=== PATIENT | male | born 1965 | race Caucasian/White ===

== ENCOUNTER 2017-01-30 14:28 | Emergency (ER) | payer OTHER ==
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
[2017-01-30 14:58] VITALS: BP 147/73; PULSE 118; TEMP 100.1; BMI 29.2
== END 2017-01-30 16:29 | disposition home or self-care (01) ==
LOC: FER 14:28
DX: H16.9 Unspecified keratitis (principal); G62.9 Polyneuropathy, unspecified; N30.10 Interstitial cystitis (chronic) without hematuria
CPT/HCPCS: 70450-TC; 99281-25

== ENCOUNTER 2017-03-13 16:10 | Emergency (ER) | payer OTHER ==
[2017-03-13 16:28] VITALS: BP 155/85; PULSE 96; TEMP 97.9; BMI 30.5
[2017-03-13] MEDS ORDERED: TETRACAINE 0.5% OPHTH SOLN 2 ML BOTTLE ONE (16:43)
[2017-03-13] MEDS ORDERED: FLUORESCEIN NA 1 EA STRIP ONE (16:43)
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
[2017-03-13] MEDS ORDERED: CIPROFLOXACIN HCL 0.3% OPHTH 2.5ML BOTTLE ONE (17:24)
[2017-03-14] MEDS ORDERED: CIPROFLOXACIN 0.3% EYE DROPS 5 ML BOTTLE OS ONE (17:19)
== END 2017-03-13 17:30 | disposition home or self-care (01) ==
LOC: FER 16:10
DX: H57.12 Ocular pain, left eye (principal); E11.9 Type 2 diabetes mellitus without complications
CPT/HCPCS: 99281-25

== ENCOUNTER 2017-07-25 13:40 | Emergency (ER) | payer OTHER ==
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
[2017-07-25 14:02] VITALS: BP 119/91; PULSE 100; TEMP 98.7; BMI 31.1
== END 2017-07-25 15:30 | disposition home or self-care (01) ==
LOC: FER 13:40 → SUPCPDRO 13:40 → FER 15:30
DX: M19.011 Primary osteoarthritis, right shoulder (principal); M54.12 Radiculopathy, cervical region; E11.9 Type 2 diabetes mellitus without complications
CPT/HCPCS: 72125-TC; 73030-TC-RT; 99283-25

== ENCOUNTER 2018-03-02 07:35 | Day surgery (SDC) | payer OTHER ==
[2018-03-01 15:35] VITALS: BMI 27.8
[~2018-03-02 07:35] MED LIST: HEPARIN NA (PORCINE) 5,000 UNITS/ML 1ML VIAL SQ ONE; LIDOCAINE HCL 1%, 10 MG/ML (20ML VIAL) INF ONE
[2018-03-02] MEDS ORDERED: PROPOFOL 20 ML ONE (09:08)
[2018-03-02] MEDS ORDERED: MIDAZOLAM HCL 2 MG/2 ML SINGLE DOSE VIAL ONE (09:08)
[2018-03-02] MEDS ORDERED: LIDOCAINE HCL 1%, 10 MG/ML (20ML VIAL) ONE (09:17)
[2018-03-02] MEDS ORDERED: HEPARIN NA (PORCINE) 5,000 UNITS/ML 1ML VIAL ONE (09:17)
[2018-03-02] MEDS ORDERED: PROMETHAZINE HCL 25 MG/1 ML VIAL IVPUSH PRN (09:19)
[2018-03-02] MEDS ORDERED: ONDANSETRON 4 MG/2 ML VIAL IVPUSH PRN (09:19)
[2018-03-02] MEDS ORDERED: LACTATED RINGERS SOLUTION 1,000 ML IV SCH (09:30)
[2018-03-02] MEDS ORDERED: ceFAZolin SODIUM 1 GM VIAL ONE (09:31)
[2018-03-02] MEDS ORDERED: SODIUM CHLORIDE 0.9% P/F 10 ML VIAL IJ ONE (09:31)
[2018-03-02] MEDS ORDERED: ceFAZolin SODIUM 1 GM VIAL IVPB ONE (09:33)
[2018-03-02] MEDS ORDERED: LIDOCAINE HCL/PF 2% SDV 5ML VIAL ONE (09:34)
[2018-03-02] MEDS ORDERED: LIDOCAINE HCL 1%, 10 MG/ML (20ML VIAL) INF ONE ×2 (09:50)
[2018-03-02] MEDS ORDERED: HEPARIN NA (PORCINE) 5,000 UNITS/ML 1ML VIAL SQ ONE (09:51)
--- NOTE | 2018-03-02 10:39 | HP ---
Admitting History and Physical - Admission Chief Complaint: Pt with IVC filter placed at [facility]. Recently found to have lupus and is hypercoaguble. Needs to have filter removed. Limitations to Obtaining History: No Limitations - Smoking History Smoking history: Never smoked Have you smoked in the past 12 months: No Aproximately how many cigarettes per day: 0 - Alcohol/Substance Use Hx Alcohol Use: No Home Medications - Allergies Allergies/Adverse Reactions: Allergies Allergy/AdvReac Type Severity Reaction Status Date / Time atorvastatin calcium Allergy Intermediate Hives Verified 03/02/18 08:17 [From Lipitor] - Home Medications Home Medications: Ambulatory Orders Gabapentin 800 mg PO QID 03/17/14 Sitagliptin Phosphate [Januvia] 100 mg PO DAILY 01/30/17 LORazepam [Ativan] 2 mg PO BID 02/13/18 Methadone [Dolophine -] 80 mg PO DAILY 02/13/18 Rivaroxaban [Xarelto -] 1 tab PO DAILY 02/13/18 Linaclotide [Linzess] 145 mcg PO DAILY 03/01/18 Mirabegron [Myrbetriq] 50 mg PO DAILY 03/01/18 Quetiapine Fumarate [Seroquel] 100 mg PO DAILY 03/01/18 Review of Systems - Review of Systems Constitutional: reports: No Symptoms Eyes: reports: No Symptoms HENT: reports: No Symptoms Neck: reports: No Symptoms Cardiovascular: reports: No Symptoms Respiratory: reports: No Symptoms Gastrointestinal: reports: No Symptoms Genitourinary: reports: No Symptoms Musculoskeletal: reports: No Symptoms Integumentary: reports: No Symptoms Neurological: reports: No Symptoms Endocrine: reports: No Symptoms Hematology/Lymphatic: reports: No Symptoms Psychiatric: reports: No Symptoms Physical Examination Vital Signs: Vital Signs Temperature 98.4 F 03/02/18 08:14 Pulse Rate 81 03/02/18 08:14 Respiratory Rate 16 03/02/18 08:14 Blood Pressure 119/61 03/02/18 08:14 O2 Sat by Pulse Oximetry (%) 100 03/02/18 08:14 Constitutional: Yes: Well Nourished, No Distress, Calm Eyes: Yes: WNL, Conjunctiva Clear, EOM Intact HENT: Yes: WNL, Atraumatic, Normocephalic Neck: Yes: WNL, Supple, Trachea Midline Cardiovascular: Yes: WNL, Regular Rate and Rhythm Respiratory: Yes: WNL, Regular, CTA Bilaterally Gastrointestinal: Yes: WNL, Normal Bowel Sounds Musculoskeletal: Yes: WNL Extremities: Yes: WNL Edema: No Integumentary: Yes: WNL Neurological: Yes: WNL, Alert, Oriented ...Motor Strength: WNL Psychiatric: Yes: WNL Problem List - Problems (1) DVT (deep venous thrombosis) Code(s): I82.409 - ACUTE EMBOLISM AND THOMBOS UNSP DEEP VN UNSP LOWER EXTREMITY Assessment/Plan DVT/PE with filter. 1. Here for filter removal today.
--- NOTE | 2018-03-02 10:41 | OP ---
Operative Note - Note: Operative Date: 03/02/18 Pre-Operative Diagnosis: DVT/PE, hypercoaguble syndrome Operation: retrieval of IVC filter, with venogram Findings: NO clot found in IVC Post-Operative Diagnosis: Same as Pre-op Surgeon: Michael Hurtado Anesthesia: Fractional Estimated Blood Loss (mls): 50 Operative Report Dictated: Yes
--- NOTE | 2018-03-02 11:45 | OP ---
DATE OF OPERATION: 03/02/2018 PREOPERATIVE DIAGNOSIS: Deep vein thrombosis, pulmonary embolism with hypercoagulable syndrome. POSTOPERATIVE DIAGNOSIS: Deep vein thrombosis, pulmonary embolism with hypercoagulable syndrome. PROCEDURE: Retrieval of inferior vena cava filter with venogram. SURGEON: Michael Loredo DO ANESTHESIA: Fractional. BLOOD LOSS: 50 mL The patient is a 52-year-old male that had an IVC filter with suction thrombectomy performed at [facility] about 1 month ago. At that time, they placed a filter and the patient IVC thrombosis. He recently went to a district resource officer and they found that he has possible antiphospholipid syndrome and lupus anticoagulant and due to that hypercoagulable syndrome, he needs to have his filter removed because that could be a nidus for further thrombosis. Patient came into Ambulatory Surgery. Patient stopped his Xarelto 2 days prior. Patient was consented for the procedure understanding all risks, benefits and alternatives and was taken to the operating room. Once in the operating room, he was laid on operating table in supine manner and the area of the right neck and chest prepped and draped in sterile surgical manner. Under ultrasound guidance, we visualized the right internal jugular vein and 10 mL lidocaine 1% was injected there. We then took the micropuncture needle and punctured the right internal jugular vein. Micropuncture wire was inserted. Micropuncture sheath was inserted. We then placed a J-wire and exchanged that for a 7-Tongan sheath. We then placed under fluoroscopy down to the IVC filter. We then went ahead and placed our Merit Snare Sheath down to the filter. We then placed our snare inside the sheath and then brought our snare out of the sheath near the filter. The snare was then used. Using the snare, we were able to grasp the filter and we were then able to place our sheath over the filter and the filter collapsed into the sheath. The sheath was then entirely removed through the neck and the filter was removed. The filter was then removed from the sheath and sent to Pathology. We then went ahead and placed our Merit Sheath back in and shot a vena cavogram of the area and there was no IVC clot and there was good flow in the inferior vena cava. We then went ahead and removed our 7-Tongan sheath from the right IJ. Pressure was held for 5 minutes. After there was no bleeding, the area was wet and dry and Dermabond was placed. Patient tolerated the procedure with no complications. Patient transferred to PACU in stable condition. MICHAEL LOREDO DO [id number]
[2018-03-02 11:46] VITALS: TEMP 97.8
[2018-03-02 12:04] VITALS: PULSE 72
[2018-03-02 12:40] VITALS: BP 128/78
--- NOTE | 2018-03-03 13:25 | PATH ---
Surgical Pathology Report Patient Name: NUSRAT MOE Med. Rec. #: [id number] /Age/Gender: 1965 (Age: 52) / M Account: [id number] Location: [facility] SURGICAL Taken: 03/02/2018 Received: 03/02/2018 Reported: 03/03/2018 Physicians: Michael Hurtado Specimen(s) Received IVC FILTER Clinical History DVT/PE Final Diagnosis IVC FILTER, REMOVAL: IVC FILTER. MACROSCOPIC DIAGNOSIS. Electronically Signed Sarah Panchal M.D. Gross Description Received fresh labeled "IVC filter," is a 6 cm in greatest dimension [place] metallic foreign body, consistent with an IVC filter. No soft tissue is present. No sections are submitted, gross only. /03/02/201803/02/2018
== END 2018-03-02 12:30 | disposition home or self-care (01) ==
LOC: JASU-SURG 07:35
PROVIDERS: ATTEND Surgery Vascular Surgery
PROC: 05PY3YZ Removal of Other Device from Upper Vein, Percutaneous Approach (ICD-10-PCS; principal; 2018-03-02 09:00)
DX: I82.C21 Chronic embolism and thrombosis of right internal jugular vein (principal); Z86.711 Personal history of pulmonary embolism; Z79.01 Long term (current) use of anticoagulants; D68.69 Other thrombophilia
CPT/HCPCS: 71045-TC-FY; 76000-TC-FY; 82962; 88300-TC; 94760; J1644